=== PATIENT | female | born 1995 | race Caucasian/White ===

== ENCOUNTER 2021-05-17 11:07 | Outpatient (REF) | payer OTHER, SELFPAY ==
[2021-05-17 13:48] LABS: MANUAL DIFF FLAG NO
[2021-05-17 14:06] LABS: Basophils Absolute Auto 0.1 X10*3/uL (0.0-0.2); Basophils Percent Auto 0.4 % (0-2); Eosinophils Absolute Auto 0.2 X10*3/uL (0.0-0.4); Eosinophils Percent Auto 1.8 % (0-4); Hemoglobin 15.3 g/dl (12.0-16.0); Imm Gran Abs Auto 0.09 X10*3/uL (0.00-0.03); Imm Gran Pct Auto 0.8 % (0.0-0.4); Lymphocytes Absolute Auto 2.6 X10*3/uL (1.2-4.9); Lymphocytes Percent Auto 22.5 % (20-40); Mean Corpuscular HGB Conc 34.8 g/dl (31.0-35.0); Mean Corpuscular Hemoglobin 31.4 pg (27.0-33.0); Mean Corpuscular Volume 90.2 fL (80.0-98.0); Mean Platelet Volume 10.1 fL (9.4-12.3); Monocytes Absolute Auto 0.6 X10*3/uL (0.1-1.2); Monocytes Percent Auto 5.3 % (2-11); Neutrophils Absolute Auto 7.9 x10*3/uL (2.0-8.3); Neutrophils Percent Auto 69.2 % (45-73); Platelet Count 321 X10*3/uL (160-400); Red Blood Count 4.88 X10*6/uL (4.20-5.50); Red Cell Distribution Width 11.7 % (11.0-16.0); White Blood Count 11.4 X10*3/uL (4.8-10.8)
[2021-05-17 14:27] LABS: TSH reflex Free T4 < 0.01 uIU/mL (0.32-4.0); Vitamin D 25-OH Total 5.6 ng/mL (>30)
[2021-05-17 14:31] LABS: Alanine Aminotransferase 14 U/L (0-31); Anion Gap 11 (12-20); Aspartate Amino Transferase 12 U/L (5-31); Blood Urea Nitrogen 6 mg/dL (9-16); Calcium 9.5 mg/dL (8.4-10.2); Carbon Dioxide 24 mmol/L (22-29); Chloride 106 mmol/L (96-108); Cholesterol 151 mg/dL; Estimated Glomerular Filt Rate > 60; Glucose Fasting 80 mg/dL (60-99); HDL Cholesterol 41 mg/dL; LDL Cholesterol Calculated 99 mg/dl; Potassium 4.8 mmol/L (3.3-5.1); Sodium 136 mmol/L (135-145); Triglycerides 59 mg/dL
[2021-05-17 14:44] LABS: Folate 3.1 ng/mL (> or = 4.0); Vitamin B12 485 pg/mL (200-900)
[2021-05-17 15:39] LABS: Free T4 (Free Thyroxine) 1.03 ng/dL (0.71-1.85)
[2021-05-19 19:31] LABS: TS Negative Control Passed; TS Panel A 0; TS Panel B 0; TS Positive Control Passed; TSpotTB Negative (Negative)
== END 2021-05-17 11:08 | disposition home or self-care (01) ==
LOC: HO.HMGCLDS 11:07
PROVIDERS: Visit Provider Internal Medicine
DX: Z00.01 Encounter for general adult medical examination with abnormal findings (principal); Z11.1 Encounter for screening for respiratory tuberculosis; F84.0 Autistic disorder
CPT/HCPCS: 36415; 80048; 80061; 82306; 82607; 82746; 84439; 84443; 84450; 84460; 85025; 86481

== ENCOUNTER 2022-11-08 13:15 | Outpatient (AMB) | payer OTHER, SELFPAY ==
--- NOTE | 2022-11-08 13:18 | MHC.PC.OV ---
Vital Signs 11/08/22 13:31 Height 5 ft 3 in Weight 157 lb BMI 27.8 BP 122/82 Blood Pressure Location Rt brachial Position Sitting Pulse 105 H Pulse Source Pulse Oximeter Pulse Oximetry (%) 99 Oxygen Delivery Method Room Air Intake Visit Reasons: Autism/Dentist Forms F/U Intake Note: Pt is here today to discuss dentist form Allergies No Known Allergies Allergy (Verified 11/08/22 13:42) Medication List - Last Reconciled 11/08/22 by Adeola Hawkins MD lorazepam 0.5 mg PO DAILY PRN quetiapine 50 mg PO BID Tobacco use date assessed: 11/08/22 Dental Screening Dental Screen Date: 11/08/22 Did you have a dental visit in the last 12 months?: No HPI HPI Comments History of Present Illness Details 27-year-old lady here today accompanied by mother for physical exam and to get clearance form to be seen at [facility]. She has autism currently goes to daycare in the [facility], currently being followed by Tiffanie Sears at [facility], who has prescribed quetiapine 50 mg taken twice a day, and has a prescription for lorazepam to take as needed for acute anxiety attacks. She has been referred and seen by senior mechanical designer for her routine Pap and pelvic exam, but was unable to do it due to patient's being uncooperative with exam. She is up-to-date with all her COVID vaccinations including the bivalent booster and her flu shot. [facility] Medical History (Updated 11/08/22 @ 13:50 by Adeola Hawkins MD) Autism Autism Vitamin D deficiency Surgical History No pertinent past surgical history Family History Paternal Grandfather Substance use disorder Mental health disorder Alcoholic Paternal Grandmother Substance use disorder Brother Autism Maternal Uncle Aspergers' syndrome Father No problems noted. Social History Housing: House Patient Tobacco Use Status: Never used Tobacco e-Cigarette/Vaping Use: Never Used Current occupational status: disabled Cognitive needs: Yes Hearing needs: No Vision needs: No Female Reproductive History Menstrual Age of Menarche: 11 Questionnaire Thrive Questionnaire Date Thrive assessed: 11/08/22 I am a: Parent/Caregiver What is your living situation today?: I have a steady place to live Within the past 12 months, did the food you bought not last and you didn't have the money to get more?: Never true Within the past 12 months, did you worry whether your food would run out before you got money to buy more?: Never true Do you have trouble paying for medicines?: No Do you have trouble getting transportation to medical appointments?: No Do you have trouble paying your heating and electricity bill?: No Do you have trouble taking care of your child, family member or friend?: No Do you have trouble with day-to-day activities such as bathing, preparing meals, shopping, managing finances, etc.?: No Are you currently unemployed and looking for a job?: No Are you interested in more education?: No AUDIT C Alcohol Use Questionnaire (AUDIT-C) 1. How often do you have a drink containing alcohol?: Never Total Score: 0 SKYE-7 AMB Questionnaire SKYE-7 Date SKYE - 7 assessed: 05/17/21 Source: Developed by Drs. Kofi Nathan, Estee Andrade, Hilton Alvarez and colleagues, with an educational quirino from [employer]. Review of Systems Const Unobtainable due to mental condition (Mother answers all questions) Reports difficulty sleeping and Reports weight gain Eyes Reports no additional complaints ENT Reports no additional complaints (For father) Card Denies acrocyanosis, Denies syncope, Denies edema, Denies leg ulcers and Denies dyspnea Resp Denies cough, Denies excessive phlegm production, Denies dyspnea and Denies wheezing GI Denies melena, Denies hematochezia, Denies change in bowel habits and Denies change in stool character Denies abnormal menses and Denies urinary incontinence Musc Denies deformity and Denies joint swelling Skin/Breast Denies breast swelling, Denies breast skin changes, Denies lesions and Denies rash Neuro Reports Abnormal speech present, Denies syncope, Denies lack of coordination, Denies convulsions and Denies seizure-like activity Psych Details: Unable to assess patient has autism Reports as per HPI Endo Reports no additional complaints Umesh/Lymph Denies easy bleeding and Denies easy bruising Aller/Immun Denies seasonal rhinorrhea and Denies wheezing Physical exam (Primary Care) Vital Signs: Last Vital Signs Pulse 105 H 11/08/22 13:31 BP 122/82 11/08/22 13:31 Pulse Ox 99 11/08/22 13:31 Oxygen Delivery Method Room Air 11/08/22 13:31 BMI result Body Mass Index 27.8 Tobacco/Smoking Status: Tobacco use Status Tobacco use date assessed 11/08/22 11/08/22 13:20 Patient Tobacco Use Status Never used Tobacco 11/08/22 13:20 e-Cigarette/Vaping Use Never Used 11/08/22 13:20 Thrive Assessment: Date of Thrive Assessment Date Thrive assessed 11/08/22 11/11/22 02:06 Const General: cooperative, no acute distress, awake and Physically active Nutritional Appearance: overweight Orientation/consciousness: oriented to person Limitations: behavioral limitations and language barrier HENMT Head: Yes normocephalic and Yes atraumatic Ears: external ears normal, TM's normal bilaterally and EAC's normal General nose exam: Normal external nose present and No nasal discharge present Face and sinus: Yes face symmetric Mouth: Normal oral and palatal mucosa present, lip normal, tongue normal, oropharynx normal and moist mucous membranes Eyes General: appearance normal, both eyes and all related structures Neck Neck: Yes full ROM and Yes no lymphadenopathy Thyroid: Thyroid normal (Thyroid nonpalpable) Chest Breast/axilla inspection: normal inspection of the breasts Breast/axilla palpation: normal palpation of the breasts Resp Effort & Inspection: normal respiratory effort Auscultation: clear to auscultation bilaterally Cardio Jugular venous distension: no JVD Palpation: normal PMI Rate: regular rate Rhythm: regular rhythm GI Inspection: Yes normal to inspection Palpation (GI): Soft to palpation, nontender, no guarding and no masses Auscultation: normal bowel sounds General: Yes no CVA tenderness Back/Spine/Pelvis Back: no CVA tenderness and No back tenderness Skin General skin exam: no rashes or lesions noted Neuro General: oriented to person, gait normal, moves all extremities and no focal motor deficits Speech: Abnormal speech present Psych Other: Unable to assess Assessment and Plan Assessment & Plan (1) Annual visit for general adult medical examination with abnormal findings: Code(s): Z00.01 - Encounter for general adult medical examination with abnormal findings Plan: Will check appropriate labs. Recommended dental visit every 6 months and regular eye exams, at least every 2 years. Take adequate calcium in diet and vitamin-D 3 at 2000 IU per cap once a day, in addition to weight-bearing exercises to help maintain good muscle tone and weight control. She is up-to-date with her COVID vaccination including the bivalent booster gets yearly flu shots, reminded to get her Tdap [facility] Medical dental clearance form completed and signed and given back to patient's mother, copy of form done and placed in chart (2) Autism: Code(s): F84.0 - Autistic disorder Plan: Currently goes to day program and is being followed by Psychiatry (3) Vitamin D deficiency: Code(s): E55.9 - Vitamin D deficiency, unspecified Plan: Will check another vitamin-D level and B12 and folic acid levels as well. Orders: Orders Vitamin D 25-OH Total 11/08/22 E55.9 - Vitamin D deficiency, unspecified, F84.0 - Autistic disorder, Z00.01 - Encounter for general adult medical examination with abnormal findings Vitamin B12 and Folate 11/08/22 E55.9 - Vitamin D deficiency, unspecified, F84.0 - Autistic disorder, Z00.01 - Encounter for general adult medical examination with abnormal findings Lipid Panel 11/08/22 E55.9 - Vitamin D deficiency, unspecified, F84.0 - Autistic disorder, Z00.01 - Encounter for general adult medical examination with abnormal findings Basic Metabolic Panel Fasting 11/08/22 E55.9 - Vitamin D deficiency, unspecified, F84.0 - Autistic disorder, Z00.01 - Encounter for general adult medical examination with abnormal findings Alanine Aminotransferase 11/08/22 E55.9 - Vitamin D deficiency, unspecified, F84.0 - Autistic disorder, Z00.01 - Encounter for general adult medical examination with abnormal findings Aspartate Amino Transferase 11/08/22 E55.9 - Vitamin D deficiency, unspecified, F84.0 - Autistic disorder, Z00.01 - Encounter for general adult medical examination with abnormal findings Hemoglobin and Hematocrit 11/08/22 E55.9 - Vitamin D deficiency, unspecified, F84.0 - Autistic disorder, Z00.01 - Encounter for general adult medical examination with abnormal findings TSH reflex Free T4 11/08/22 E55.9 - Vitamin D deficiency, unspecified, F84.0 - Autistic disorder, Z00.01 - Encounter for general adult medical examination with abnormal findings Coding Level of Care Code Est Pt Prev Care 18-39y(75212) Diagnoses Annual visit for general adult medical examination with abnormal findings Z00.01 Autism F84.0 Vitamin D deficiency E55.9
[2022-11-08 13:31] VITALS: BP 122/82; PULSE 105; O2SAT 99; BMI 27.8
== END 2022-11-08 14:23 | disposition home or self-care (01) ==
PROVIDERS: PCP Internal Medicine; Visit Provider Internal Medicine
DX: Z00.01 Encounter for general adult medical examination with abnormal findings (principal); F84.0 Autistic disorder; E55.9 Vitamin D deficiency, unspecified
CPT/HCPCS: 99395

== ENCOUNTER 2024-01-27 10:53 | Outpatient (AMB) | payer OTHER, SELFPAY ==
--- NOTE | 2024-01-27 11:07 | MHC.PC.OV ---
Vital Signs 01/27/24 11:15 Height 5 ft 2 in Weight 121 lb BMI 22.1 BP 122/70 Blood Pressure Location Rt brachial Position Sitting Pulse 85 Pulse Source Pulse Oximeter Pulse Oximetry (%) 97 Oxygen Delivery Method Room Air Intake Visit Reasons: PE Intake Note: Pt is here today for her PE Allergies No Known Allergies Allergy (Verified 01/27/24 11:32) Medication List - Last Reconciled 01/27/24 by Adeola Hawkins MD hydroxyzine HCl 25 mg PO DAILY lorazepam 0.5 mg PO DAILY PRN quetiapine 50 mg PO BID Tobacco use date assessed: 01/27/24 Dental Screening Dental Screen Date: 01/27/24 Did you have a dental visit in the last 12 months?: No Did you have a dental problem in the last 6 months where you did not have access to dental care?: No Was dental information given to patient?: Yes HPI PE HPI Details 28-year-old lady with autism, here today for her physical exam. She is currently attending a day program, but has been having violent outbursts and has been given lorazepam as needed to help calm her down. She is currently being seen by Psychiatry nurse practitioner who has been prescribing quetiapine 100 mg in the morning and 50 mg at night, and also being prescribed hydroxyzine 25 mg to take at home as needed for acute anxiety attacks which has been helping, as per her father. They are currently seeking referral to an autism center in [facility] for further evaluation and management. She is not sexually referred to OBGYN for her initial pelvic been pelvic exam but was unable to have it done. [facility] Medical History Vitamin D deficiency Autism Surgical History No pertinent past surgical history Family History Paternal Grandfather Substance use disorder Mental health disorder Alcoholic Paternal Grandmother Substance use disorder Brother Autism Maternal Uncle Aspergers' syndrome Father No problems noted. Social History Housing: House Patient Tobacco Use Status: Never used Tobacco e-Cigarette/Vaping Use: Never Used Current occupational status: disabled Cognitive needs: Yes Hearing needs: No Vision needs: No Female Reproductive History Menstrual Age of Menarche: 11 Questionnaire Thrive Questionnaire Date Thrive assessed: 01/27/24 I am a: Parent/Caregiver What is your living situation today?: I have a steady place to live Within the past 12 months, did the food you bought not last and you didn't have the money to get more?: Never true Within the past 12 months, did you worry whether your food would run out before you got money to buy more?: Never true Do you have trouble paying for medicines?: No Do you have trouble getting transportation to medical appointments?: No Do you have trouble paying your heating and electricity bill?: No Do you have trouble taking care of your child, family member or friend?: No Do you have trouble with day-to-day activities such as bathing, preparing meals, shopping, managing finances, etc.?: Yes Are you currently unemployed and looking for a job?: No Are you interested in more education?: No Currently or been in a relationship where the following occur: No concerns reported THRIVE Score: 0 AUDIT C Alcohol Use Questionnaire (AUDIT-C) 1. How often do you have a drink containing alcohol?: Never Total Score: 0 SKYE-7 AMB Questionnaire SKYE-7 Date SKYE - 7 assessed: 05/17/21 Source: Developed by Drs. Kofi Nathan, Estee Andrade, Hilton Alvarez and colleagues, with an educational quirino from [employer]. Review of Systems Const Details: Patient able to answer simple questions with a yes or no Unobtainable due to mental condition (father answered all questions) Eyes Reports no additional complaints ENT Reports no additional complaints (For father) Card Denies acrocyanosis, Denies syncope, Denies edema, Denies leg ulcers and Denies dyspnea Resp Denies cough, Denies excessive phlegm production, Denies dyspnea and Denies wheezing GI Denies melena, Denies hematochezia, Denies change in bowel habits and Denies change in stool character Denies abnormal menses and Denies urinary incontinence Musc Denies deformity and Denies joint swelling Skin/Breast Denies breast swelling, Denies breast skin changes, Denies lesions and Denies rash Neuro Reports Abnormal speech present, Denies syncope, Denies lack of coordination, Denies convulsions and Denies seizure-like activity Psych Details: Unable to assess patient has autism Reports as per HPI Endo Reports no additional complaints Muesh/Lymph Denies easy bleeding and Denies easy bruising Aller/Immun Denies seasonal rhinorrhea and Denies wheezing Physical exam (Primary Care) Vital Signs: Last Vital Signs Pulse 85 01/27/24 11:15 BP 122/70 01/27/24 11:15 Pulse Ox 97 01/27/24 11:15 Oxygen Delivery Method Room Air 01/27/24 11:15 BMI result Body Mass Index 22.1 Tobacco/Smoking Status: Tobacco use Status Tobacco use date assessed 01/27/24 01/27/24 11:09 Patient Tobacco Use Status Never used Tobacco 01/27/24 11:09 e-Cigarette/Vaping Use Never Used 01/27/24 11:09 Thrive Assessment: Date of Thrive Assessment Date Thrive assessed 01/27/24 01/27/24 11:09 Currently or been in a relationship where the following occur: No concerns reported Const General: no acute distress, awake and Physically active Orientation/consciousness: oriented to person Limitations: behavioral limitations and language barrier HENSD Head: Yes normocephalic and Yes atraumatic Ears: external ears normal, TM's normal bilaterally and EAC's normal (Mild cerumen present in left ear canal) General nose exam: Normal external nose present and No nasal discharge present Face and sinus: Yes face symmetric Mouth: Normal oral and palatal mucosa present, lip normal, tongue normal, oropharynx normal and moist mucous membranes Eyes General: appearance normal, both eyes and all related structures Alignment and Position: alignment normal Eyelids: Yes eyelids normal Conjunctivae: conjunctivae normal Sclerae: sclerae normal Pupils: Equal, round and reactive pupils present EOM: EOMs intact bilaterally Neck Neck: Yes full ROM and Yes no lymphadenopathy Thyroid: Thyroid normal (Thyroid nonpalpable) Chest Breast/axilla inspection: normal inspection of the breasts Breast/axilla palpation: normal palpation of the breasts Resp Effort & Inspection: normal respiratory effort Auscultation: clear to auscultation bilaterally Cardio Jugular venous distension: no JVD Palpation: normal PMI Rate: regular rate Rhythm: regular rhythm GI Inspection: Yes normal to inspection Palpation (GI): Soft to palpation, nontender, no guarding and no masses Auscultation: normal bowel sounds General: Yes no CVA tenderness External Female Exam: other (Unable to do, uncooperative patient) Back/Spine/Pelvis Back: no CVA tenderness and No back tenderness Skin General skin exam: no rashes or lesions noted Neuro General: oriented to person, gait normal, moves all extremities, no focal motor deficits and CN's II-XI intact bilaterally Cranial nerves: Yes Equal, round and reactive pupils present Speech: Abnormal speech present and Other speech findings present (Neuro) (Echolalia) Extrem General: Yes normal to inspection, Yes full ROM, Yes no joint enlargement, Yes no clubbing, cyanosis or edema, Yes no calf tenderness and Yes normal gait Psych Other: Unable to assess Coding Level of Care Code Est Pt Prev Care 18-39y(43189) Diagnoses Annual visit for general adult medical examination with abnormal findings Z00.01 Autism F84.0 Advanced directives, counseling/discussion Z71.89 Assessment & Plan Assessment & Plan (1) Annual visit for general adult medical examination with abnormal findings: Code(s): Z00.01 - Encounter for general adult medical examination with abnormal findings Plan: Will check appropriate labs. Recommended dental visit every 6 months and regular eye exams, at least every 2 years. , breast exam, uncooperative with getting cervical cancer screening and routine pelvic exam, attempted in the past. Recommended to get yearly flu vaccine, patient uncooperative to have vaccine on this visit , recommended as well to get COVID booster, up-to-date with her Tdap Medical clearance to get dental screening with [facility] completed today (2) Autism: Code(s): F84.0 - Autistic disorder Category: Medical Plan: She has been referred to the autism Center at [facility], form completed today (3) Advanced directives, counseling/discussion: Code(s): Z71.89 - Other specified counseling Plan: Healthcare proxy form completed today Orders: Orders Complete Blood Count Auto Diff Today E53.8 - Deficiency of other specified B group vitamins, E55.9 - Vitamin D deficiency, unspecified, F84.0 - Autistic disorder, R79.89 - Other specified abnormal findings of blood chemistry, Z13.1 - Encounter for screening for diabetes mellitus, Z13.220 - Encounter for screening for lipoid disorders Basic Metabolic Panel Fasting Today E53.8 - Deficiency of other specified B group vitamins, E55.9 - Vitamin D deficiency, unspecified, F84.0 - Autistic disorder, R79.89 - Other specified abnormal findings of blood chemistry, Z13.1 - Encounter for screening for diabetes mellitus, Z13.220 - Encounter for screening for lipoid disorders Alanine Aminotransferase Today E53.8 - Deficiency of other specified B group vitamins, E55.9 - Vitamin D deficiency, unspecified, F84.0 - Autistic disorder, R79.89 - Other specified abnormal findings of blood chemistry, Z13.1 - Encounter for screening for diabetes mellitus, Z13.220 - Encounter for screening for lipoid disorders Aspartate Amino Transferase Today E53.8 - Deficiency of other specified B group vitamins, E55.9 - Vitamin D deficiency, unspecified, F84.0 - Autistic disorder, R79.89 - Other specified abnormal findings of blood chemistry, Z13.1 - Encounter for screening for diabetes mellitus, Z13.220 - Encounter for screening for lipoid disorders Vitamin D 25-OH Total Today E53.8 - Deficiency of other specified B group vitamins, E55.9 - Vitamin D deficiency, unspecified, F84.0 - Autistic disorder, R79.89 - Other specified abnormal findings of blood chemistry, Z13.1 - Encounter for screening for diabetes mellitus, Z13.220 - Encounter for screening for lipoid disorders Thyroid Stimulating Hormone Today E53.8 - Deficiency of other specified B group vitamins, E55.9 - Vitamin D deficiency, unspecified, F84.0 - Autistic disorder, R79.89 - Other specified abnormal findings of blood chemistry, Z13.1 - Encounter for screening for diabetes mellitus, Z13.220 - Encounter for screening for lipoid disorders Free T4 (Free Thyroxine) Today E53.8 - Deficiency of other specified B group vitamins, E55.9 - Vitamin D deficiency, unspecified, F84.0 - Autistic disorder, R79.89 - Other specified abnormal findings of blood chemistry, Z13.1 - Encounter for screening for diabetes mellitus, Z13.220 - Encounter for screening for lipoid disorders Influenza [id number] Immunization Today Z23 - Encounter for immunization Lipid Panel Today E53.8 - Deficiency of other specified B group vitamins, E55.9 - Vitamin D deficiency, unspecified, F84.0 - Autistic disorder, R79.89 - Other specified abnormal findings of blood chemistry, Z13.1 - Encounter for screening for diabetes mellitus, Z13.220 - Encounter for screening for lipoid disorders Vitamin B12 and Folate Today E53.8 - Deficiency of other specified B group vitamins, E55.9 - Vitamin D deficiency, unspecified, F84.0 - Autistic disorder, R79.89 - Other specified abnormal findings of blood chemistry, Z13.1 - Encounter for screening for diabetes mellitus, Z13.220 - Encounter for screening for lipoid disorders Medications: New Fluarix Triv [id number] (PF) (flu vacc [id number] 6mos up(PF)) 0.5 mL IM ONCE 0.5 mL 0RF NS Z23 - Encounter for immunization
[2024-01-27 11:15] VITALS: BP 122/70; PULSE 85; O2SAT 97; BMI 22.1
== END 2024-01-27 12:24 | disposition home or self-care (01) ==
PROVIDERS: PCP Internal Medicine; Visit Provider Internal Medicine
DX: Z00.01 Encounter for general adult medical examination with abnormal findings (principal); F84.0 Autistic disorder; Z71.89 Other specified counseling

== ENCOUNTER → 2024-01-27 10:53 | Outpatient (BNVA) | payer OTHER, SELFPAY | PROVIDERS: PCP Internal Medicine; Visit Provider Internal Medicine | DX: Z00.00 Encounter for general adult medical examination without abnormal findings (principal); F84.0 Autistic disorder; Z71.89 Other specified counseling | CPT/HCPCS: 99395 ==